=== PATIENT | male | born 1960 | race Caucasian/White ===

== ENCOUNTER 2021-01-18 08:55 | Emergency (ER) | payer OTHER, SELFPAY ==
--- NOTE | ~2021-01-18 | XR_ITS ---
XR chest 2V DATE: 01/18/2021 09:36 INDICATION: Cough, weakness. TECHNIQUE: 2 views COMPARISON: None FINDINGS: There is prominent elevation the right leaf of the diaphragm with associated right basilar atelectasis. The lungs otherwise are clear. No pleural effusion or pulmonary vascular congestion or p neumothorax is evident. Normal heart size. Mild levoscoliosis of the thoracic spine. Degenerative spurring of the thoracic spine. IMPRESSION: Prominent elevation of right diaphragm and mild right basilar atelectasis Reviewed, dictated and finalized at location A. IMPRESSION: Prominent elevation of right diaphragm and mild right basilar atele ctasis
[2021-01-18 09:04] VITALS: BP 112/59; PULSE 69; RESP 20; TEMP 36.7; O2SAT 94
--- NOTE | 2021-01-18 09:11 | ED.NAVMDI ---
HPI - Nausea/Vomiting/Diarrhea General Chief complaint: Upper Respiratory Infection Stated complaint: nausea and open sore on foot Time Seen by Provider: 01/18/21 09:25 Source: patient and RN notes reviewed Mode of arrival: ambulatory Limitations: no limitations History of Present Illness HPI Narrative: 60 year old male presents to express care with complaints of nausea and vomiting and cough for one week duration. Patient states that he took some OTC cough syrup last night and he threw up, denies nausea at this time. Patient lives in [place], [place] but has been staying with his sister since having right great toe amputated in August. He attributes his intermittent nausea feelings from his hyperbaric treatments that he receives at the wound clinic at [facility].Patient states his last visit was Monday and he was suppose to go today but cancelled because he doesn't feel well. Patient states no known fevers,chills or sweats, denies any body aches, reports some frontal headache discomfort today rates it a 3/10. He reports that he has not eaten today but took his medications except for insulin, reports glucose at home when he checked was 111, reading in clinic noted to be 179.Patient states that his cough feels loose at times but has not been productive, denies any acute feeling of dyspnea with no tachypnea or accessory muscle use noted, able to speak in full sentences, SAO2 94% on room air. Patient is presently on Doxycycline for his wound does not want to remove foot dressing reports appointment with wound center tomorrow. MD elicited complaint: nausea, vomiting and other (Cough) Related Data Home Medications Medication Instructions Recorded Confirmed cholecalciferol (vitamin D3) 1,250 mcg PO WEEKLY 01/18/21 01/18/21 clopidogrel 75 mg PO DAILY 01/18/21 01/18/21 doxycycline hyclate 100 mg PO BID 01/18/21 01/18/21 ezetimibe 10 mg PO DAILY 01/18/21 01/18/21 furosemide 40 mg PO DAILY 01/18/21 01/18/21 insulin glargine [Basaglar KwikPen 30 unit SUBCUT DAILY 01/18/21 01/18/21 U-100 Insulin] insulin lispro [Admelog U-100 25 unit SUBCUT ACHS 01/18/21 01/18/21 Insulin lispro] irbesartan 300 mg PO DAILY 01/18/21 01/18/21 metformin 2,000 mg PO QPM 01/18/21 01/18/21 metoprolol tartrate 50 mg PO BID 01/18/21 01/18/21 potassium chloride 10 meq PO DAILY 01/18/21 01/18/21 rosuvastatin 5 mg PO DAILY 01/18/21 01/18/21 Allergies Allergy/AdvReac Type Severity Reaction Status Date / Time No Known Allergies Allergy Verified 01/18/21 09:20 Review of Systems Review of Systems: Narrative: CONSTITUTIONAL: Denies fever, chills, or sweats. EYES: Denies visual changes, redness, or discharge. ENT:Reports some clear rhinorrhea, congestion, sore throat, or otalgia. CARDIOVASCULAR: Denies chest pain, palpitations, or edema. RESPIRATORY: Positive cough denies any acute dyspnea. GASTROINTESTINAL: Denies abdominal pain,episodes of nausea,1 time episode of vomiting, denies diarrhea. GENITOURINARY: Denies dysuria or hematuria. SKIN: Denies rash or itching. MUSCULOSKELETAL: Denies back pain, joint pain, or myalgia. NEUROLOGIC: Positive for frontal headache, no numbness, or weakness. PSYCHIATRIC: Denies anxiety or depression. All systems reviewed & are unremarkable except as noted in HPI and below PMFSH Past Medical History Medical History (Updated 01/19/21 @ 10:57 by Celine Christensen NP) Diabetes mellitus Elevated cholesterol Hypertension Myocardial infarction Surgical History Surgical History (Updated 01/19/21 @ 10:50 by Celine Chrsitensen NP) H/O hernia repair History of open heart surgery 2 vessel bypass Hx of heart artery stent Family History Family History (Updated 01/19/21 @ 10:50 by Celine Christensen NP) Other Diabetes mellitus Heart disease Hypertension Social History Social History (Updated 01/19/21 @ 10:50 by Celine Christensen NP) Smoking status: Never smoker Alcohol intake: former Substance use: never Living ar
[2021-01-18 09:28] LABS: Glucose Point of Care 179 mg/dl (65-105)
== END 2021-01-18 10:05 | disposition home or self-care (01) ==
PROVIDERS: Emergency Provider Registered Nurse
DX: R11.2 Nausea with vomiting, unspecified (principal); J06.9 Acute upper respiratory infection, unspecified; E11.9 Type 2 diabetes mellitus without complications; E78.00 Pure hypercholesterolemia, unspecified; I10 Essential (primary) hypertension; I25.2 Old myocardial infarction
CPT/HCPCS: 71046; 82948; 99213; G0463